=== PATIENT | male | born 1985 | race African-American/Black ===

== ENCOUNTER 2017-08-14 22:24 | Emergency (ER) | payer MEDICAID ==
[~2017-08-14] VITALS: Ht 190.5 cm; Wt 154.2 kg
[2017-08-14 22:37] VITALS: BP 141/88
[2017-08-15] MEDS ORDERED: TETRACAINE HCL 0.5% OPTH(EYE) SOLN 4ML LEFTEYE ONE (00:30)
== END 2017-08-15 01:47 | disposition home or self-care (01) ==
LOC: ER 22:29
DX: H11.002 Unspecified pterygium of left eye (principal); I10 Essential (primary) hypertension

== ENCOUNTER 2018-08-11 00:45 | Emergency (ER) | payer MEDICAID ==
[~2018-08-11] VITALS: Ht 190.5 cm; Wt 149.7 kg
[2018-08-11 00:58] VITALS: BP 183/103
== END 2018-08-11 02:38 | disposition left against medical advice (07) ==
LOC: ER 00:47
DX: I10 Essential (primary) hypertension (principal); Z53.21 Procedure and treatment not carried out due to patient leaving prior to being seen by health care provider

== ENCOUNTER 2018-10-01 22:30 | Emergency (ER) | payer MEDICAID ==
[~2018-10-01] VITALS: Ht 190.5 cm; Wt 149.7 kg
[2018-10-01] MEDS ORDERED: cloNIDine HCL 0.1 MG TAB ONE (22:47)
[2018-10-01] MEDS ORDERED: cloNIDine HCL 0.1 MG TAB PO ONE (23:15)
[2018-10-01 23:25] LABS: Basophils # (auto) 0.1 uL; Eosinophils # (auto) 0.3 uL; Lymphocytes # (auto) 3.7 uL; Neutrophils # (auto) 9.7 uL; Nucleated Red Blood Cells % 0.1 %
[2018-10-01 23:27] LABS: Basophils % (auto) 0.5 % (0.0-2.0); Eosinophils % (auto) 1.8 % (0.0-7.0); Hematocrit 43.2 % (41.0-53.0); Hemoglobin 14.1 g/dL (13.5-17.5); Lymphocytes % (auto) 25.7 % (10.0-50.0); Mean Corpuscular Hemoglobin 27.2 pg (28.0-32.0); Mean Corpuscular Hgb Conc. 32.7 g/dL (32.0-36.0); Mean Corpuscular Volume 83.1 fL (80.0-100.0); Monocytes # (auto) 0.8 uL; Monocytes % (auto) 5.2 % (0.0-12.0); Neutrophils % (auto) 66.8 % (37.0-80.0); Platelet Count (auto) 243 10^3/uL (140-450); Red Cell Distribution Width 16.6 % (11.8-14.3); White Blood Cell 14.6 10^3/uL (4.4-10.8)
[2018-10-01 23:34] LABS: Chloride 105 mmol/L (98-107); Potassium 3.8 mmol/L (3.5-5.1); Sodium 140 mmol/L (136-145)
[2018-10-01 23:38] LABS: Albumin 3.1 g/dL (3.4-5.0); Anion Gap 6 (5-15); BUN/Creatinine Ratio 10.3; Blood Urea Nitrogen 13 mg/dL (7-18); Calcium 8.2 mg/dL (8.5-10.1); Carbon Dioxide 29 mmol/L (21-32); GFR African American 86 mL/min; GFR Non-African American 71 mL/min; Glucose 86 mg/dL (74-106); Magnesium 2.4 mg/dL (1.6-2.6)
[2018-10-01 23:51] LABS: Alanine Aminotransferase 27 U/L (16-61); Alkaline Phosphatase 130 U/L (45-117); Aspartate Aminotransferase 15 U/L (15-37); Bilirubin, Total 0.3 mg/dL (0.2-1.0); Total Protein 7.2 g/dL (6.4-8.2)
[2018-10-02] MEDS ORDERED: cloNIDine HCL 0.1 MG TAB PO ONE (01:15)
[2018-10-02 02:51] VITALS: BP 147/100
== END 2018-10-02 03:27 | disposition home or self-care (01) ==
LOC: ER 22:40
DX: F41.9 Anxiety disorder, unspecified (principal); R51 Headache
CPT/HCPCS: 36415; 70450; 80053; 83735; 84484; 85025; 93005

== ENCOUNTER 2019-03-31 05:46 | Emergency (ER) | payer MEDICAID ==
[~2019-03-31] VITALS: Ht 190.5 cm; Wt 149.7 kg
[2019-03-31] MEDS ORDERED: cloNIDine HCL 0.1 MG TAB PO ONE ×2 (06:45→07:30)
[2019-03-31 07:05] LABS: Alanine Aminotransferase 27 U/L (16-61); Albumin 3.1 g/dL (3.4-5.0); Anion Gap 11 (5-15); Aspartate Aminotransferase 21 U/L (15-37); BUN/Creatinine Ratio 8.7; Blood Urea Nitrogen 10 mg/dL (7-18); Carbon Dioxide 24 mmol/L (21-32); Chloride 105 mmol/L (98-107); GFR African American 95 mL/min; GFR Non-African American 78 mL/min; Glucose 132 mg/dL (74-106); Magnesium 2.1 mg/dL (1.6-2.6); Potassium 3.3 mmol/L (3.5-5.1); Sodium 140 mmol/L (136-145)
[2019-03-31 07:10] LABS: Alkaline Phosphatase 138 U/L (45-117); Bilirubin, Total 0.6 mg/dL (0.2-1.0); Total Protein 7.7 g/dL (6.4-8.2)
[2019-03-31 07:11] LABS: Basophils # (auto) 0.1 uL; Basophils % (auto) 0.6 % (0.0-2.0); Eosinophils # (auto) 0.2 uL; Neutrophils # (auto) 9.1 uL
[2019-03-31 07:14] LABS: Eosinophils % (auto) 1.6 % (0.0-7.0); Hematocrit 41.8 % (41.0-53.0); Hemoglobin 13.8 g/dL (13.5-17.5); Lymphocytes # (auto) 2.9 uL; Lymphocytes % (auto) 22.5 % (10.0-50.0); Mean Corpuscular Hemoglobin 26.9 pg (28.0-32.0); Mean Corpuscular Hgb Conc. 33.1 g/dL (32.0-36.0); Mean Corpuscular Volume 81.4 fL (80.0-100.0); Monocytes # (auto) 0.8 uL; Monocytes % (auto) 5.8 % (0.0-12.0); Neutrophils % (auto) 69.5 % (37.0-80.0); Platelet Count (auto) 251 10^3/uL (140-450); Red Blood Cells 5.13 10^6/uL (4.5-5.90); Red Cell Distribution Width 16.7 % (11.8-14.3)
[2019-03-31] MEDS ORDERED: POTASSIUM CHL 20 Meq TABLET PO ONE (07:45)
[2019-03-31 08:03] VITALS: BP 151/103
== END 2019-03-31 08:50 | disposition home or self-care (01) ==
LOC: ER 05:46
DX: R22.41 Localized swelling, mass and lump, right lower limb (principal); I16.0 Hypertensive urgency; M25.571 Pain in right ankle and joints of right foot
CPT/HCPCS: 36415; 73610; 80053; 83735; 83880; 84484; 85025; 93005; 93971

== ENCOUNTER 2021-03-26 15:51 | Emergency (ER) | payer SELFPAY ==
[~2021-03-26] VITALS: Ht 190.5 cm; Wt 181.4 kg
[2021-03-26 15:53] VITALS: BP 233/155
[2021-03-26] MEDS ORDERED: cloNIDine HCL 0.1 MG TAB PO ONE ×3 (16:00→19:30)
[2021-03-26 18:31] LABS: Basophils # (auto) 0.1 10 ^3/uL (0-0.2); Basophils % (auto) 0.9 % (0.0-2.0); Eosinophils # (auto) 0.2 10 ^3/uL (0-0.8); Eosinophils % (auto) 1.5 % (0.0-7.0); Hematocrit 48.4 % (41.0-53.0); Hemoglobin 16.6 g/dL (13.5-17.5); Lymphocytes % (auto) 20.9 % (10.0-50.0); Mean Corpuscular Hemoglobin 27.6 pg (28.0-32.0); Mean Corpuscular Hgb Conc. 34.2 g/dL (32.0-36.0); Mean Corpuscular Volume 80.8 fL (80.0-100.0); Monocytes # (auto) 0.8 10 ^3/uL (0-1.3); Monocytes % (auto) 5.8 % (0.0-12.0); Neutrophils # (auto) 10.1 10 ^3/uL (1.6-8.6); Neutrophils % (auto) 70.9 % (37.0-80.0); Platelet Count (auto) 273 10^3/uL (140-450); Red Cell Distribution Width 16.9 % (11.8-14.3); White Blood Cell 14.2 10^3/uL (4.4-10.8)
[2021-03-26] MEDS ORDERED: AMOXICILLIN/CLAVUL 875 MG TAB PO ONE (18:45)
[2021-03-26 18:48] LABS: Albumin 3.9 g/dL (3.4-5.0); Calcium 10.4 mg/dL (8.5-10.1); Potassium 4.6 mmol/L (3.5-5.1)
[2021-03-26 18:51] LABS: BUN/Creatinine Ratio 8.7; Bilirubin, Total 0.8 mg/dL (0.2-1.0); Total Protein 8.6 g/dL (6.4-8.2)
[2021-03-26] MEDS ORDERED: InsuLIN REG 1unit/0.01ml Soln (100units/ml) IV ONE (19:45)
[2021-03-26] MEDS ORDERED: SODIUM CHLORIDE 0.9% 2,000 ML IV ONE (20:00)
[2021-03-26 20:33] LABS: Basophils # (auto) 0.1 10 ^3/uL (0-0.2); Basophils % (auto) 0.7 % (0.0-2.0); Eosinophils # (auto) 0.2 10 ^3/uL (0-0.8); Eosinophils % (auto) 1.6 % (0.0-7.0); Hemoglobin 16.2 g/dL (13.5-17.5); Lymphocytes # (auto) 2.9 10 ^3/uL (0.4-5.4); Lymphocytes % (auto) 21.2 % (10.0-50.0); Mean Corpuscular Hemoglobin 27.3 pg (28.0-32.0); Mean Corpuscular Hgb Conc. 33.7 g/dL (32.0-36.0); Monocytes # (auto) 0.8 10 ^3/uL (0-1.3); Monocytes % (auto) 5.8 % (0.0-12.0); Neutrophils # (auto) 9.6 10 ^3/uL (1.6-8.6); Neutrophils % (auto) 70.7 % (37.0-80.0); Nucleated Red Blood Cells % 0.1 %; Platelet Count (auto) 271 10^3/uL (140-450); Red Blood Cells 5.93 10^6/uL (4.5-5.90); Red Cell Distribution Width 17.3 % (11.8-14.3); White Blood Cell 13.6 10^3/uL (4.4-10.8)
[2021-03-26 20:48] LABS: Albumin 3.9 g/dL (3.4-5.0); Calcium 10.3 mg/dL (8.5-10.1); Potassium 4.7 mmol/L (3.5-5.1)
[2021-03-26 20:51] LABS: Bilirubin, Total 0.8 mg/dL (0.2-1.0); Total Protein 8.5 g/dL (6.4-8.2)
== END 2021-03-26 21:01 | disposition left against medical advice (07) ==
LOC: ER 15:51
DX: J03.90 Acute tonsillitis, unspecified (principal); I10 Essential (primary) hypertension; Z53.29 Procedure and treatment not carried out because of patient's decision for other reasons
CPT/HCPCS: 36415; 80053; 82010; 85025; 85049

== ENCOUNTER 2023-01-30 11:50 | Emergency (ER) | payer MEDICAID ==
[~2023-01-30] VITALS: Ht 193 cm; Wt 172.7 kg
[2023-01-30] MEDS ORDERED: ASPirin 81 mg TAB PO ONE (12:00)
[2023-01-30 12:15] LABS: Basophils # (auto) 0.1 10 ^3/uL (0-0.2); Basophils % (auto) 1.1 % (0.0-2.0); Eosinophils # (auto) 0.2 10 ^3/uL (0-0.8); Eosinophils % (auto) 1.5 % (0.0-7.0); Hematocrit 44.6 % (41.0-53.0); Hemoglobin 14.4 g/dL (13.5-17.5); Lymphocytes # (auto) 2.6 10 ^3/uL (0.4-5.4); Lymphocytes % (auto) 24.4 % (10.0-50.0); Mean Corpuscular Hemoglobin 27.3 pg (28.0-32.0); Mean Corpuscular Hgb Conc. 32.4 g/dL (32.0-36.0); Mean Corpuscular Volume 84.2 fL (80.0-100.0); Monocytes # (auto) 0.5 10 ^3/uL (0-1.3); Monocytes % (auto) 4.6 % (0.0-12.0); Neutrophils # (auto) 7.2 10 ^3/uL (1.6-8.6); Neutrophils % (auto) 68.4 % (37.0-80.0); Nucleated Red Blood Cells % 0.1 %; Red Blood Cells 5.29 10^6/uL (4.5-5.90); Red Cell Distribution Width 14.4 % (11.8-14.3); White Blood Cell 10.5 10^3/uL (4.4-10.8)
[2023-01-30] MEDS ORDERED: cloNIDine HCL 0.1 MG TAB PO ONE (12:15)
[2023-01-30 12:50] LABS: Potassium 4.1 mmol/L (3.5-5.1)
[2023-01-30 12:55] LABS: Albumin 3.4 g/dL (3.4-5.0); Bilirubin, Total 0.4 mg/dL (0.2-1.0); Calcium 8.8 mg/dL (8.5-10.1); Magnesium 2.1 mg/dL (1.6-2.6); Total Protein 6.7 g/dL (6.4-8.2)
[2023-01-30] MEDS ORDERED: SODIUM CHLORIDE 0.9% 1,000 ML IV ONE (14:15)
[2023-01-30] MEDS ORDERED: InsuLIN REG 1unit/0.01ml Soln (100units/ml) IV ONE (14:15)
[2023-01-30] MEDS ORDERED: EMPA1TAB PO (14:22)
[2023-01-30] MEDS ORDERED: METF-371 PO (14:22)
[2023-01-30] MEDS ORDERED: HYDR25TA5 PO (14:27)
[2023-01-30] MEDS ORDERED: ATEN-60 PO (14:27)
[2023-01-30 14:40] VITALS: BP 150/76
== END 2023-01-30 14:51 | disposition home or self-care (01) ==
LOC: ER 11:50
DX: I16.0 Hypertensive urgency (principal); R07.89 Other chest pain; R73.9 Hyperglycemia, unspecified; Z79.899 Other long term (current) drug therapy
CPT/HCPCS: 36415; 71046; 80053; 83735; 83880; 84484; 85025; 93005

== ENCOUNTER 2023-06-19 23:55 | Emergency (ER) | payer MEDICAID ==
[~2023-06-19] VITALS: Ht 190.5 cm; Wt 172.0 kg
[~2023-06-19 23:55] MED LIST: ATEN-60 PO; EMPA1TAB PO; HYDR25TA5 PO; METF-371 PO
[2023-06-20 04:25] VITALS: BP 160/106; TEMP 98.2; O2SAT 96
[2023-06-20] MEDS ORDERED: cloNIDine HCL 0.1 MG TAB PO ONE (04:30)
[2023-06-20] MEDS ORDERED: LISI10TA34 PO (04:39)
[2023-06-20] MEDS ORDERED: HYDR25TA4 PO (04:39)
[2023-06-20] MEDS ORDERED: METF-370 PO (04:39)
[2023-06-20 05:22] VITALS: PULSE 77; RESP 18
== END 2023-06-20 05:25 | disposition home or self-care (01) ==
LOC: ER 23:57
DX: I16.0 Hypertensive urgency (principal); E11.65 Type 2 diabetes mellitus with hyperglycemia; Z76.0 Encounter for issue of repeat prescription; Z79.899 Other long term (current) drug therapy
CPT/HCPCS: 82962

== ENCOUNTER 2023-09-15 22:08 | Emergency (ER) | payer MEDICAID ==
[~2023-09-15] VITALS: Ht 190.5 cm; Wt 167.3 kg
[~2023-09-15 22:08] MED LIST changes: +HYDR25TA4 PO; +LISI10TA34 PO; +METF-370 PO
[2023-09-15 23:55] LABS: Eosinophils # (auto) 0 10 ^3/uL (0-0.8); Eosinophils % (auto) 0.1 % (0.0-7.0); Monocytes # (auto) 0.9 10 ^3/uL (0-1.3); Neutrophils # (auto) 5.4 10 ^3/uL (1.6-8.6)
[2023-09-15 23:57] LABS: Basophils # (auto) 0.1 10 ^3/uL (0-0.2); Basophils % (auto) 0.7 % (0.0-2.0); Hematocrit 51.9 % (41.0-53.0); Hemoglobin 17.1 g/dL (13.5-17.5); Lymphocytes # (auto) 2.3 10 ^3/uL (0.4-5.4); Lymphocytes % (auto) 26.3 % (10.0-50.0); Mean Corpuscular Hemoglobin 28.3 pg (28.0-32.0); Mean Corpuscular Volume 85.7 fL (80.0-100.0); Monocytes % (auto) 10.8 % (0.0-12.0); Neutrophils % (auto) 62.1 % (37.0-80.0); Nucleated Red Blood Cells % 0.1 %; Red Blood Cells 6.05 10^6/uL (4.5-5.90); Red Cell Distribution Width 14.7 % (11.8-14.3); White Blood Cell 8.7 10^3/uL (4.4-10.8)
[2023-09-16 00:03] LABS: Alanine Aminotransferase 29 U/L (7-40); Albumin 4.9 g/dL (3.2-4.8); Aspartate Aminotransferase 32 U/L (13-40); Bilirubin, Total 0.7 mg/dL (0.2-1.0)
[2023-09-16 00:04] LABS: Chloride 100 mmol/L (98-107); Potassium 3.2 mmol/L (3.5-5.1); Sodium 132 mmol/L (136-145); Total Protein 8.2 g/dL (5.7-8.2)
[2023-09-16 00:07] LABS: Anion Gap 13 (5-15); Calcium 8.9 mg/dL (8.7-10.4); Carbon Dioxide 19 mmol/L (20-30)
[2023-09-16 00:12] LABS: Alkaline Phosphatase 113 U/L (46-116); BUN/Creatinine Ratio 7.6 (10.0-20.0); Blood Urea Nitrogen 10 mg/dL (9-23); Glucose 148 mg/dL (74-106)
[2023-09-16] MEDS ORDERED: POTASSIUM EFFERVESENT TAB 25 MEQ PO ONE (00:30)
[2023-09-16] MEDS ORDERED: LACTATED RINGER'S 2,000 ML IV ONE ×2 (00:30→03:00)
[2023-09-16 00:33] LABS: Urine Bacteria NONE SEEN /hpf (None Seen); Urine Blood Negative /uL (Negative); Urine Clarity HAZY (Clear); Urine Color Yellow (Yellow); Urine Hyaline Cast FEW /lpf (0 - 2); Urine Mucus FEW (None Seen); Urine Protein, UAD 1+ (Negative); Urine Specific Gravity 1.028 (1.001-1.035); Urine Urobilinogen Normal (Negative); Urine WBC 4 /hpf (0 - 3); Urine pH 5.5 (5.0-8.0)
[2023-09-16 01:56] VITALS: PULSE 85; RESP 20; O2SAT 93
[2023-09-16 04:00] VITALS: BP 161/98; PULSE 86; RESP 16; TEMP 98.4; O2SAT 96
[2023-09-16 05:11] LABS: Rapid Influenza B Negative (Negative)
[2023-09-16 05:13] LABS: Rapid Influenza A Positive (Negative)
[2023-09-16 05:14] LABS: COVID19 ANTIGEN SOFIA FIA NEGATIVE (NEGATIVE)
[2023-09-16] MEDS ORDERED: TAMIFLU PO (05:19)
== END 2023-09-16 05:52 | disposition home or self-care (01) ==
LOC: ER 22:08
DX: J10.1 Influenza due to other identified influenza virus with other respiratory manifestations (principal); E86.0 Dehydration; R53.1 Weakness; E87.6 Hypokalemia; E11.9 Type 2 diabetes mellitus without complications; I10 Essential (primary) hypertension; Z20.822 Contact with and (suspected) exposure to COVID-19
CPT/HCPCS: 36415; 71045; 80053; 81001; 82962; 85025; 87426; 87804; 96360; 96361